=== PATIENT | female | born 1980 | race African-American/Black ===

== ENCOUNTER 2016-10-27 06:37 | Emergency (ER) | payer OTHER ==
[2016-10-27 06:43] VITALS: BP 135/67; BMI 26.4
--- NOTE | 2016-10-27 07:05 | DR.GENAD ---
HPI - PCP Primary Care Physician: RICO MIN - Complaint/Symptoms Chief Complaint Doctors Comments: Patient admits to feet pain for years and her pcp treats her with tramadol. 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 She wears rubber boots at her place of employment. She admits to a headache of one day, frontal and sharp. Chief Complaint:: HEADACHE, DIZZY, LEGS HURT - Source History Provided: Patient - Mode of Arrival Mode of Arrival: Ambulatory - Timing Onset of Chief Complaint: 10/27/16 PMH - PMH Past Medical History: Yes Past Medical History: Anxiety, Depression Past Surgical History: Yes Surgical History: - Family History History of Family Medical Conditions: Yes Family Medical History: Diabetes Mellitus, Cancer, [place], Coronary Artery Disease, Hypertension - Social History Does patient currently use any type of tobacco product: No Have you used tobacco products in the last 12 months: No Type of Tobacco Use: None Do you use any recreational Drugs:: No Lives Where: Home - infectious screening Have you traveled outside the country in the last 6 months?: No Isolation: Standard ROS - Review of Systems Eyes: No Symptoms Reported ENTM: No Symptoms Reported Respiratoy: No Symptoms Reported Cardiovascular: No Symptoms Reported Gastrointestinal/Abdominal: No Symptoms Reported Genitourinary: No Symptoms Reported Neurological: No Symptoms Reported Musculoskeletal: No Symptoms Reported Integumentary: No Symptoms Reported Hematologic/Lymphatic: No Symptoms Reported Endocrine: No Symptoms Reported Psychiatric: No Symptoms Reported All Other Systems: Reviewed and Negative PE - Vital Signs Vitals: Temperature 98.8 F Pulse Rate 80 Respiratory Rate 16 Blood Pressure [Left Arm] 108/70 Blood Pressure [Right Arm] 100/50 Blood Pressure 135/67 O2 Sat by Pulse Oximetry 99 - General Limitations: No Limitations General Appearance: Alert, In No Apparent Distress - Head Head Exam: Normal Inspection, Atraumatic - Eyes Eye exam: Normal Appearance, PERRL, EOMI - ENT ENT Exam: Normal Exam External Ear Exam: Normal External Inspection TM/Canal Exam: Bilateral Normal Nose Exam: Normal Nose Exam Mouth Exam: Normal Inspection Throat Exam: Normal Inspection - Neck Neck Exam: Normal Inspection, Full ROM - Chest Chest Inspection: Normal Inspection - Respiratory Respiratory Exam: Normal Lung Sounds Bilat Respiratory Exam: Bilateral Clear to Auscultation - Cardiovascular Cardiovascular Exam: Regular Rate - Abdominal Exam Abdominal Exam: Normal Inspection, Normal Bowel Sounds Abdominal Tenderness: negative: RUQ, RLQ, LUQ, LLQ, Epigastrium, Suprapubic, Diffuse, Mild, Moderate, Severe, Other - Extremities Extremities Exam: Normal Inspection. negative: Edema, Joint Swelling - Back Back Exam: Normal Inspection - Neurologic Neurological Exam: Alert, Oriented X3, CN II-XII Intact - Psychiatric Psychiatric Exam: Normal Affect - Skin Skin Exam: Warm, Dry, Intact - Diagnosis Discharge Problem: Plantar fasciitis - Discharge Plan Condition: Stable - Follow ups/Referrals Follow ups/Referrals: RICO MIN [Primary Care Provider] - 3 days - Instructions
== END 2016-10-27 07:25 | disposition home or self-care (01) ==
LOC: ER 06:37
DX: M72.2 Plantar fascial fibromatosis (principal)
CPT/HCPCS: 99281; 99282

== ENCOUNTER 2017-01-31 06:19 | Emergency (ER) | payer OTHER ==
[2017-01-31 06:28] VITALS: BP 120/58; BMI 26.4
[2017-01-31] MEDS ORDERED: TORADOL 60 MG VIAL IM ONE (06:39)
[2017-01-31] MEDS ORDERED: TORADOL 60 MG VIAL ONE (06:40)
[2017-01-31] MEDS ORDERED: VALIUM INJ IM ONE (06:43)
[2017-01-31] MEDS ORDERED: VALIUM ONE (06:46)
[2017-01-31] MEDS ORDERED: VALIUM PO ONE (06:49)
--- NOTE | 2017-01-31 06:52 | DR.GENAD ---
HPI - PCP Primary Care Physician: RICO MIN - Complaint/Symptoms Chief Complaint Doctors Comments: Patient states that she was at work on yesterday and had to pull a trolley loaded with meats. 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 Today she complains of left back and hip pain. She states that the pain is sharp,moderate in severity worse with forward bending Chief Complaint:: LEFT HIP PAIN Self Treatment fo Chief Complaint: NEURONTIN - Source History Provided: Patient - Mode of Arrival Mode of Arrival: Ambulatory - Timing Onset of Chief Complaint: 01/30/17 PMH - PMH Past Medical History: Yes Past Medical History: Anxiety Past Surgical History: Yes Surgical History: Past Surgical History Comment: PARTIAL HYSTERECTOMY - Family History History of Family Medical Conditions: No Family Medical History: Diabetes Mellitus, Cancer, [place], Coronary Artery Disease, Hypertension - Social History Alcohol Use: None Do you use any recreational Drugs:: No Lives With: Alone Lives Where: Home - infectious screening In the last 2 months have you had wt loss of >10#?: NO Have you had fever, night sweats or hemotysis?: No Have you traveled outside the country in the last 6 months?: No Isolation: Standard ROS - Review of Systems Eyes: No Symptoms Reported ENTM: No Symptoms Reported Respiratoy: No Symptoms Reported Cardiovascular: No Symptoms Reported Gastrointestinal/Abdominal: No Symptoms Reported Genitourinary: No Symptoms Reported Neurological: No Symptoms Reported Musculoskeletal: No Symptoms Reported Integumentary: No Symptoms Reported Hematologic/Lymphatic: No Symptoms Reported Endocrine: No Symptoms Reported Psychiatric: No Symptoms Reported All Other Systems: Reviewed and Negative PE - Vital Signs Vitals: Temperature 98.5 F Pulse Rate 82 Respiratory Rate 18 Blood Pressure [Left Arm] 108/70 Blood Pressure [Right Arm] 100/50 Blood Pressure 120/58 O2 Sat by Pulse Oximetry 98 - General General Appearance: Alert, In No Apparent Distress - Head Head Exam: Normal Inspection, Atraumatic - Eyes Eye exam: Normal Appearance, PERRL, EOMI - ENT ENT Exam: Normal Exam External Ear Exam: Normal External Inspection TM/Canal Exam: Bilateral Normal Nose Exam: Normal Nose Exam Mouth Exam: Normal Inspection Throat Exam: Normal Inspection - Neck Neck Exam: Normal Inspection, Full ROM - Chest Chest Inspection: Normal Inspection - Respiratory Respiratory Exam: Normal Lung Sounds Bilat Respiratory Exam: Bilateral Clear to Auscultation - Cardiovascular Cardiovascular Exam: Regular Rate, Normal Rhythm - Abdominal Exam Abdominal Exam: Normal Inspection, Normal Bowel Sounds Abdominal Tenderness: negative: RUQ, RLQ, LUQ, LLQ, Epigastrium, Suprapubic, Diffuse, Mild, Moderate, Severe, Other - Extremities Extremities Exam: Normal Inspection - Back Back Exam: Normal Inspection, Muscle Spasm, (L) Straight Leg Raise (<45 degrees) - Neurologic Neurological Exam: Alert, Oriented X3, CN II-XII Intact - Psychiatric Psychiatric Exam: Normal Affect - Skin Skin Exam: Warm, Dry, Intact Course - Reevaluation 1st: Improved ROR - XRAY XRAY Interpreted by: Radiologist (The bony pelvis is intact. There is hypertrophy of superolateral acetabular regions bilaterally, likely contributing to acetabular impingement. Lucency present involving the posterior superior lip of the left acetabulum was present on the prior CT scan. No evidence of fracture or dislocation is seen. A joint effusion is not identified. Impression: Bilateral supra lateral acetabular bony hypertrophy; no fracture or dislocation is seen.) - Diagnosis Discharge Problem: Muscle spasm of back - Discharge Plan Condition: Stable - Follow ups/Referrals Follow ups/Referrals: RICO MIN [Primary Care Provider] - 3 days - Instructions
--- NOTE | 2017-01-31 07:14 | RAD ---
HISTORY: Left hip pain, fall 2 weeks ago Study: Two-view left hip Comparison: CT abdomen and pelvis done 12/31/2014. Technique: AP pelvis and frog-leg lateral views of the left hip were provided. Findings: The bony pelvis is intact. There is hypertrophy of superolateral acetabular regions bilaterally, like ly contributing to acetabular impingement. Lucency present involving the posterior superior lip of th e left acetabulum was present on the prior CT scan. No evidence of fracture or dislocation is seen. A joint effusion is not identified. IMPRESSION: Bilateral supra lateral acetabular bony hypertrophy. No fracture or dislocation is seen. Reported By:
== END 2017-01-31 07:41 | disposition home or self-care (01) ==
LOC: ER 06:19
DX: M62.830 Muscle spasm of back (principal)
CPT/HCPCS: 73501; 96372; 99282; J1885

== ENCOUNTER 2017-03-31 10:59 | Emergency (ER) | payer OTHER ==
[2017-03-31 11:03] VITALS: BP 119/57; BMI 26.6
--- NOTE | 2017-03-31 12:53 | DR.GENAD ---
HPI - PCP Primary Care Physician: RICO MIN - Complaint/Symptoms Chief Complaint Doctors Comments: Patient admits to back, left hip and leg pain. This has been ongoing for weeks. She states that she is scheduled for MRI but it has not been approved. She states that her initial onset of pain was while she was at work; without known etiology. Chief Complaint:: PATIENT STATED THAT HER BACK AND HIP AND DOWN THE LEG ON HER LEFT SIDE HAS BEEN HURTING FOR THE LAST 3 DAYS - Source History Provided: Patient - Mode of Arrival Mode of Arrival: Ambulatory - Timing Onset of Chief Complaint: 03/28/17 PMH - PMH Past Medical History: Yes Past Medical History: Anxiety Past Surgical History: Yes Surgical History: - Family History History of Family Medical Conditions: Yes Family Medical History: Diabetes Mellitus, Cancer, [place], Coronary Artery Disease, Hypertension - Social History Does patient currently use any type of tobacco product: No Have you used tobacco products in the last 12 months: No Type of Tobacco Use: None Does any household member use tobacco: No Alcohol Use: None Do you use any recreational Drugs:: No Lives With: Family Lives Where: Home - infectious screening In the last 2 months have you had wt loss of >10#?: NO Have you had fever, night sweats or hemotysis?: No Have you traveled outside the country in the last 6 months?: No Isolation: Standard ROS - Review of Systems Eyes: No Symptoms Reported ENTM: No Symptoms Reported Respiratoy: No Symptoms Reported Cardiovascular: No Symptoms Reported Gastrointestinal/Abdominal: No Symptoms Reported Genitourinary: No Symptoms Reported Neurological: No Symptoms Reported Musculoskeletal: No Symptoms Reported Integumentary: No Symptoms Reported Hematologic/Lymphatic: No Symptoms Reported Endocrine: No Symptoms Reported Psychiatric: No Symptoms Reported All Other Systems: Reviewed and Negative PE - Vital Signs Vitals: Temperature 96.6 F Pulse Rate 81 Respiratory Rate 20 Blood Pressure [Left Arm] 108/70 Blood Pressure [Right Arm] 100/50 Blood Pressure 119/57 O2 Sat by Pulse Oximetry 97 - General Limitations: No Limitations General Appearance: Alert, In No Apparent Distress - Head Head Exam: Normal Inspection, Atraumatic - Eyes Eye exam: Normal Appearance, PERRL, EOMI - ENT ENT Exam: Normal Exam External Ear Exam: Normal External Inspection TM/Canal Exam: Bilateral Normal Nose Exam: Normal Nose Exam, Sinus Tenderness Mouth Exam: Normal Inspection Throat Exam: Normal Inspection - Neck Neck Exam: Normal Inspection, Full ROM - Chest Chest Inspection: Normal Inspection - Respiratory Respiratory Exam: Normal Lung Sounds Bilat Respiratory Exam: Bilateral Clear to Auscultation - Cardiovascular Cardiovascular Exam: Regular Rate, Normal Rhythm - Abdominal Exam Abdominal Exam: Normal Inspection, Normal Bowel Sounds Abdominal Tenderness: negative: RUQ, RLQ, LUQ, LLQ, Epigastrium, Suprapubic, Diffuse, Mild, Moderate, Severe, Other - Extremities Extremities Exam: Normal Inspection - Back Back Exam: Normal Inspection - Neurologic Neurological Exam: Alert, Oriented X3, CN II-XII Intact - Psychiatric Psychiatric Exam: Normal Affect, Normal Mood - Skin Skin Exam: Warm, Dry, Intact - Diagnosis Discharge Problem: Chronic left hip pain - Discharge Plan Condition: Stable - Follow ups/Referrals Follow ups/Referrals: RICO MIN [Primary Care Provider] - 3 days - Instructions
[2017-03-31] MEDS ORDERED: NUBAIN INJ 10 IM ONE (13:00)
[2017-03-31] MEDS ORDERED: NUBAIN INJ 10 ONE (13:03)
== END 2017-03-31 13:34 | disposition home or self-care (01) ==
LOC: ER 11:12
DX: M25.552 Pain in left hip (principal)
CPT/HCPCS: 96372; 99282; J2300